=== PATIENT | male | born 1965 | race Caucasian/White ===

== ENCOUNTER 2018-06-04 10:07 | Inpatient (IN) | payer SELFPAY ==
[2018-06-04 10:47] LABS: URINE SOURCE MIDSTREAM
[2018-06-04 10:52] LABS: URINE BILIRUBIN NEGATIVE (NEGATIVE); URINE BLOOD TRACE (NEGATIVE); URINE GLUCOSE (UA) NEGATIVE (NEGATIVE); URINE KETONE NEGATIVE (NEGATIVE); URINE LEUKOCYTE ESTERASE TRACE (NEGATIVE); URINE MICROSCOPIC INDICATED? YES; URINE NITRATE POSITIVE (NEGATIVE); URINE PH 6.5 (4.6 - 8.0); URINE PROTEIN NEGATIVE (NEGATIVE); URINE UROBILINOGEN 0.2 E.U./dL (0.2 - 1.0)
[2018-06-04] MEDS ORDERED: Haloperidol Lactate 5 mg/mL 1mL Vial IM STA (11:25)
[2018-06-04 11:45] LABS: URINE CLARITY HAZY (CLEAR); URINE COLOR YELLOW
[2018-06-04 11:46] LABS: URINE BACTERIA 1+ /hpf (NONE SEEN); URINE EPITHELIAL CELLS FEW /lpf (FEW); URINE RBC 0-2 /hpf (0-5)
[2018-06-04] MEDS ORDERED: Haloperidol Lactate 5 mg/mL 1mL Vial ONE (11:56)
--- NOTE | 2018-06-04 12:13 | Diagnostic Imaging Report ---
CHEST X-RAY: AP view INDICATION: pain COMPARISON: None FINDINGS: Low lung volumes are noted. Multilevel thoracic spinal fixation hardware is noted. There is no focal consolidation or pleural effusions The heart is normal in size. IMPRESSION: Low lung volume with no focal consolidation identified Multilevel thoracic spinal fixation hardware.
[2018-06-04 13:16] LABS: INR 0.91 (0.5-1.4); PROTHROMBIN TIME (TEST) 9.5 SECONDS (9.5-11.5)
[2018-06-04 13:21] LABS: ALB/GLOB RATIO 0.7 (1.0-1.8); ALBUMIN 2.8 gm/dL (4.2-5.5); ALKALINE PHOSPHATASE 127 U/L (34-104); ANION GAP 13.9 (7.0-16.0); BILIRUBIN,TOTAL 0.1 mg/dL (0.3-1.0); BUN - UREA NITROGEN 8 mg/dL (7-25); CALCIUM SERUM 8.4 mg/dL (8.6-10.3); CARBON DIOXIDE 27.1 mEq/L (21.0-31.0); CHLORIDE 108 mEq/L (98-107); CREATININE - SERUM 0.5 mg/dL (0.7-1.3); CREATININE KINASE 234 U/L (30-223); GFR AFRICAN-AMERICAN > 60.0 ml/min (>90); GFR NON AFRICAN-AMERICAN > 60.0 ml/min; GLUCOSE 112 mg/dL (70-105); SGOT 40 U/L (13-39); SGPT/ALT 39 U/L (7-52); SODIUM SERUM 146 mEq/L (136-145)
[2018-06-04 13:23] LABS: TROP I 0.01 ng/mL (0.01-0.05)
[2018-06-04 13:27] LABS: HEMATOCRIT 31.2 % (41.0-60); HEMOGLOBIN 10.1 gm/dL (12-16); MEAN CELL VOLUME 73.3 fl (80-99); MEAN CORPUSCULAR HEMOGLOBIN 23.8 pg (26.0-30.0); MEAN CORPUSCULAR HGB CONC 32.4 pg (28.0-36.0); MEAN PLATELET VOLUME 7.6 fl; PLATELET COUNT 259 Th/cmm (150-400); RED BLOOD COUNT 4.25 Mil/cmm (4.30-5.70); RED CELL DISTRIBUTION WIDTH 17.6 % (11.5-20.0); WHITE BLOOD COUNT 8.9 Th/cmm (4.8-10.8)
[2018-06-04 14:38] LABS: AMPHETAMINE URINE NEGATIVE (NEGATIVE); BARBITURATES URINE NEGATIVE (NEGATIVE); BENZODIAZEPINES QUAL URINE NEGATIVE (NEGATIVE); CANNABINOID THC POSITIVE (NEGATIVE); COCAINE METABOLITE QUAL URINE NEGATIVE (NEGATIVE); METHADONE URINE NEGATIVE (NEGATIVE); METHAMPHETAMINES QUAL URINE NEGATIVE (NEGATIVE); OPIATES (MORPHINE) QUAL. URINE NEGATIVE (NEGATIVE); PHENCYCLIDINE (PCP) URINE NEGATIVE (NEGATIVE); TRICYCLICS (TCA) QUAL. URINE NEGATIVE (NEGATIVE)
--- NOTE | 2018-06-04 14:55 | ED Physician Chart ---
ED Chief Complaint/HPI - Patient Information Date Seen:: 06/04/18 Time Seen:: 10:40 Chief Complaint:: AMS History of Present Illness:: pt presents with AMS and ALOC; no report of trauma, H/As, S/T, neck pain, C/P, SOB, Abd. Pain, A/N/V/D/C, fever, chills, or urinary s/s Allergies:: Allergies Allergy/AdvReac Type Severity Reaction Status Date / Time acetaminophen [From Tylenol] Allergy Verified 06/04/18 10:43 Vitals:: Vital Signs - 8 hr 06/04/18 10:44 Temp 97.8 F HR 82 RR 16 BP 107/59 O2 Sat % 97 Historian:: Patient, EMS Review:: Nurse's Note Reviewed, Old Chart Reviewed, EMS run form Reviewed ED Review of Systems - Review of Systems General/Constitutional: No fever, No chills, No weight loss, Weakness, No diaphoresis, No edema, No loss of appetite Skin: No skin lesions, No rash, No bruising Head: No headache, No light-headedness Eyes: No loss of vision, No pain, No diplopia ENT: No earache, No nasal drainage, No sore throat, No tinnitus Neck: No neck pain, No swelling, No thyromegaly, No stiffness, No mass noted Cardio Vascular: No chest pain, No palpitations, No PND, No orthopnea, No edema Pulmonary: No SOB, No cough, No sputum, No wheezing GI: Nausea, Vomiting, Diarrhea, Pain, No melena, No hematochezia, No constipation, No hematemesis G/U: No dysuria, No frequency, No hematuria, No nacturia Musculoskeletal: Bone or joint pain, Back pain, No muscle pain Endocrine: No polyuria, No polydipsia Psychiatric: No prior psych history, No depression, No anxiety, No suicidal ideation, No homicidal ideation, No auditory hallucination, No visual hallucination Hematopoietic: No bruising, No lymphadenopathy Allergic/Immuno: No urticaria, No angioedema Neurological: No syncope, No focal symptoms, No weakness, No paresthesia, No headache, No seizure, No dizziness, Confusion, No vertigo ED Past Medical History - Past Medical History Obtainable: Yes Past Medical History: CVA/TIA, PUD/GERD, Arthritis Family History: HTN Social History: Smoker, Alcohol, Illicit Drug Use, Single, Homeless Surgical History: other (Colostomy; Spinal Surgery) Psychiatricy History: None Medication: Reviewed Family Medical History - Family Member Mother History Unknown: Yes ED Physical Exam - Physical Examination General/Constitutional: Awake, Well-developed, well-nourished, Alert, No distress, GCS 15, Non-toxic appearing, Ambulatory Head: Atraumatic Eyes: Lids, conjuctiva normal, PERRL, EOMI Skin: Nl inspection, No rash, No skin lesions, No ecchymosis, Well hydrated, No lymphadenopathy Other Skin comments:: + Sacral Decubitus Ulcers ENMT: External ears, nose nl, TM canals nl, Nasal exam nl, Lips, teeth, gums nl , Oropharynx nl, Tonsils nl Neck: Nontender, Full ROM w/o pain, No JVD, No nuchal rigidity, No bruit, No mass, No stridor Respiratory: Nl effort/Exclusion, Clear to Auscultation, No Wheeze/Rhonchi/Rales Cardio Vascular: RRR, No murmur, gallop, rubs, NL S1 S2, Carotid/Femoral/Distal pulses equal bilaterally GI: No tenderness/rebounding/guarding, No organomegaly, No hernia, Normal BS's, Nondistended, No mass/bruits, No McBurney tenderness, Rectum exam nl Other GI comments:: no pulsatile masses; + Colostomy Stoma Site : No CVA tenderness Extremities: No tenderness or effusion, Full ROM, normal strength in all extremities, No edema, Normal digits & nails Neuro/Psych: Alert/oriented, DTR's symmetric, Normal sensory exam, Normal motor strength, Judgement/insight normal, Mood normal, Normal gait Other Neuro/Psych comments:: + Quadriplegia (old) Misc: Normal back, No paraspinal tenderness ED Labs/Radiology/EKG Results - Lab Results Results: Laboratory Tests 06/04/18 06/04/18 06/04/18 10:20 12:00 12:53 WBC 8.9 RBC 4.25 L Hgb 10.1 L Hct 31.2 L MCV 73.3 L MCH 23.8 L MCHC Differential 32.4 RDW 17.6 Plt Count 259 MPV 7.6 Add Manual Diff YES PT INR PTT (Actin FS) Sodium Potassium Chloride Carbon Dioxide Anion Gap BUN Creatinine Est GFR ( Amer) Est GFR (Non-Af Amer) BUN/Creatinine Ratio Glucose Whole Bld Lactic Acid Calcium Total Bilirubin AST ALT Alkaline Phosphatase Creatine Kinase Troponin I Total Protein Albumin Globulin Albumin/Globulin Ratio Urine Source [place] Urine Color YELLOW Urine Clarity HAZY Urine pH 6.5 Ur Specific [place] 1.010 Urine Protein NEGATIVE Urine Glucose (UA) NEGATIVE Urine Ketones NEGATIVE Urine Blood TRACE Urine Nitrate POSITIVE H Urine Bilirubin NEGATIVE Urine Urobilinogen 0.2 Ur Leukocyte Esterase TRACE H Urine RBC 0-2 H Urine WBC 6-10 Ur Epithelial Cells FEW Urine Bacteria 1+ H Urine Opiates Screen NEGATIVE Urine Methadone Screen NEGATIVE Ur Barbiturates Screen NEGATIVE Ur Tricyclics Screen NEGATIVE Ur Phencyclidine Scrn NEGATIVE Amphetamines Screen NEGATIVE U Methamphetamines Scrn NEGATIVE U Benzodiazepines Scrn NEGATIVE U Cocaine Metab Screen NEGATIVE U Cannabinoids Screen POSITIVE H Ethyl Alcohol 06/04/18 06/04/18 06/04/18 12:53 12:53 12:53 WBC RBC Hgb Hct MCV MCH MCHC Differential RDW Plt Count MPV Add Manual Diff PT 9.5 INR 0.91 PTT (Actin FS) 26.3 Sodium 146 H Potassium 3.0 L Chloride 108 H Carbon Dioxide 27.1 Anion Gap 13.9 BUN 8 Creatinine 0.5 L Est GFR ( Amer) > 60.0 Est GFR (Non-Af Amer) > 60.0 BUN/Creatinine Ratio 16.0 Glucose 112 H Whole Bld Lactic Acid 1.58 Calcium 8.4 L Total Bilirubin 0.1 L AST 40 H ALT 39 Alkaline Phosphatase 127 H Creatine Kinase 234 H Troponin I 0.01 Total Protein 7.0 Albumin 2.8 L Globulin 4.2 Albumin/Globulin Ratio 0.7 L Urine Source Urine Color Urine Clarity Urine pH Ur Specific [place] Urine Protein Urine Glucose (UA) Urine Ketones Urine Blood Urine Nitrate Urine Bilirubin Urine Urobilinogen Ur Leukocyte Esterase Urine RBC Urine WBC Ur Epithelial Cells Urine Bacteria Urine Opiates Screen Urine Methadone Screen Ur Barbiturates Screen Ur Tricyclics Screen Ur Phencyclidine Scrn Amphetamines Screen U Methamphetamines Scrn U Benzodiazepines Scrn U Cocaine Metab Screen U Cannabinoids Screen Ethyl Alcohol 343 H - Radiology Results Comments:: NAD - EKG Interpretations EKG Time:: 11:03 Rate & Rhythm: 71; NSR Comments:: old ASMI; non-specific st-t changes ED Septic Shock - . Is Septic Shock (SBP<90, OR Lactate>4 mmol\L) present?: No - <6hrs of presentation: Vital Signs: Vital Signs - 8 hr 06/04/18 10:44 Temp 97.8 F HR 82 RR 16 BP 107/59 O2 Sat % 97 ED Reassessment (Disposition) - Reassessment Reassessment Condition:: Improved - Diagnosis Diagnosis:: AMS; ALOC; Decubitus Ulcers; Wounds; Alcohol Intoxication; Anemia; Hypernatremia ; Dehydration; Hypokalemia; Hypocalcemia; Substance Abuse; S/P Colostomy; Back Pain; Quadriplegia; UTI; Sepsis - Aftercare/Follow up Instructions Aftercare/Follow-Up Instructions:: Counseled pt regarding lab results/diagnosis & need follow up, Counseled pt & family regarding lab results/diagnosis & need follow up - Patient Disposition Discharge/Transfer:: Acute Care w/in this hosp Accepting Physician:: Dr. Hussein Time Called:: 1230 Time Responded:: 12:30 Admitted to:: Telemetry Spoke to:: Dr. Hussein Admitting Medical Physician:: Dr. Hussein Condition at Disposition:: Stable, Improved
[2018-06-04] MEDS ORDERED: Multivitamin Inj 10 ML, Thiamine HCL 100 MG, Magnesium Sulfate 2 GM, Folic Acid 1 MG in... IV ONE (14:56)
[2018-06-04] MEDS ORDERED: Sodium Chloride 0.9% 1,000 ML IV ONE (14:56)
[2018-06-04 15:09] LABS: AMYLASE SERUM 35 U/L (29-103); LIPASE 44 U/L (11-82)
[2018-06-04] MEDS ORDERED: Potassium Chloride 20 mEq ER Tab PO ONE ×2 (15:09→16:20)
[2018-06-04 16:33] LABS: BAND NEUTROPHILE 3 % (0-10); LYMPHOCYTE 25 % (20-50); MONOCYTE 8 % (2-10); NEUTROPHILS 64 % (40-80)
[2018-06-04 20:07] VITALS: BP 97/54
[2018-06-04] MEDS ORDERED: Piperacillin Sodium/Tazobact 3.375 gm Vial IV ONE (21:25)
[2018-06-05] MEDS ORDERED: Piperacillin Sodium/Tazobact 3.375 gm Vial IV ONE (01:39)
[2018-06-05] MEDS: HYDROmorphone 1 mg/mL 1mL Syr IVP PRN ×2 (01:46→10:04)
--- NOTE | 2018-06-05 08:27 | Diagnostic Imaging Report ---
Head CT without intravenous contrast Indication: Trauma, alcohol intoxication Comparison: None Technique: Axial images were obtained from the vertex to the skull base without IV contrast. Coronal reconstructions were made. Total DLP: 742, CTDI40 FINDINGS: Images of the brain obtained without contrast demonstrate no evidence of an acute hemorrhage. Minimal chronic microvessel ischemic changes are noted. The ventricles and basal cisterns are patent. No mass effect or midline shift. 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 No skull fracture or focal soft tissue swelling. The visualized paranasal sinuses are clear. Mild atherosclerosis is noted. IMPRESSION: No acute intracranial abnormality Minimal chronic microvessel ischemic changes. 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 Consider follow-up if necessary. Mild atherosclerosis.
--- NOTE | 2018-06-05 08:30 | Diagnostic Imaging Report ---
CT cervical spine without IV contrast HISTORY: Trauma COMPARISON: None Technique: Axial images were obtained from the skull base to the upper thoracic spine without IV contrast. Multiplanar reconstructions were made. Total DLP: 742, CTDI41 FINDINGS: Images of the cervical spine obtained without contrast demonstrate no evidence of an acute fracture or subluxation. [id number] degenerative changes are noted including mild disc space loss of height at C5/C6 and C6/C7 with small posterior disc osteophyte femurs at this level measuring 2 to 3 mm. There is mild bilateral neural foraminal encroachment at C5/C6 and mild right neural foraminal encroachment at C6/C7. There is mild scoliosis. No prevertebral soft tissue swelling. Atherosclerosis is noted. IMPRESSION: No evidence of acute fracture or subluxation. Mild to moderate degenerative changes. Mild scoliosis.
--- NOTE | 2018-06-05 12:17 | History and Physical ---
History of Present Illness - HPI Chief Complaint: ALOC HPI: Patient came to ER with ALOC, during ER evaluation was found Alcohol intoxication, Dehydration, Decubit sacral ulcer, reason why he was hospitalized. Vital Signs: Last Vital Signs Temp 97.8 F 06/05/18 11:34 Pulse 62 06/05/18 11:34 Resp 20 06/05/18 11:34 BP 143/70 06/05/18 11:34 Pulse Ox 98 06/05/18 11:34 Past Medical History Cardiovascular: Report: No Pertinent Hx Pulmonary: Report: No Pertinent Hx [employer]: Report: Other (Spine injury) GI: Report: Other (Colostomy in place,) Psych: Report: Addictions (Alcohol, Marijuana) Musculoskeletal: Report: Other (Limited movement of lower extremities) Rheumatologic: Report: No pertinent Hx Infectious Disease: Report: No Pertinent Hx Renal/: Report: No Pertinent Hx Endocrine: Report: No Pertinent Hx Dermatology: Report: Other (Decubit sacral ulcer) - Past Surgical History Past Surgical History: Other (Colostomy) Family Medical History - Family Member Mother History Unknown: Yes Social History Smoke: <1 pack per day Alcohol: Heavy Drugs: Marijuana Lives: Homeless Domestic Violence: Negative - Medications Home Medications: Home Medication Medication Instructions Recorded Type Alprazolam [Xanax*] 2 mg PO DAILY 06/04/18 History fentaNYL 25 mcg/hr [Duragesic 25 25 mcg TD Q72HR 06/04/18 History mcg/hr Tdm Patch] - Allergies Allergies/Adverse Reactions: Allergies Allergy/AdvReac Type Severity Reaction Status Date / Time acetaminophen [From Tylenol] Allergy Verified 06/04/18 10:43 Review of Systems - Review of Systems Constitutional: Report: Weakness Eyes: Report: No Significant ENT: Report: No Significant Respiratory: Report: No Significant Cardiovascular: Report: No Significant Gastrointestinal: Report: No Significant Genitourinary: Report: No Significant Musculoskeletal: Report: Foot Pain Skin: Report: Other (Decubit sacral ulcer) Neurological: Report: Other (Paraplegia) Physical Exam - Physical Exam HEENT: Report: Ears Nose Throat within normal limits Neck: Report: Within normal limits Cardiovascular Systems: Report: Regular, Rate and Rhythm Respiratory: Report: Breath Sounds are within normal limits Abdomen: Report: Non-tender to palpation, Other (Colostomy in place) Back: Report: Inspection of back is within normal limits. Extremities: Report: Other (Limited movement of lower extremities) Skin: Report: Other (Sacral ucer) Neuro/Psych: Report: Mood affect is within normal limits - Lab Results All Lab Results last 24 hours: Laboratory Results - last 24 hr 06/04/18 06/04/18 06/04/18 10:20 12:00 12:53 WBC 8.9 RBC 4.25 L Hgb 10.1 L Hct 31.2 L MCV 73.3 L MCH 23.8 L MCHC Differential 32.4 RDW 17.6 Plt Count 259 MPV 7.6 Add Manual Diff YES Band Neutrophils % 3 Neutrophils (Manual) 64 Lymphocytes 25 Monocytes 8 PT INR PTT (Actin FS) Sodium Potassium Chloride Carbon Dioxide Anion Gap BUN Creatinine Est GFR ( Amer) Est GFR (Non-Af Amer) BUN/Creatinine Ratio Glucose Whole Bld Lactic Acid Calcium Total Bilirubin AST ALT Alkaline Phosphatase Creatine Kinase CK-MB (CK-2) Troponin I Total Protein Albumin Globulin Albumin/Globulin Ratio Amylase Lipase Urine Source [place] Urine Color YELLOW Urine Clarity HAZY Urine pH 6.5 Ur Specific [place] 1.010 Urine Protein NEGATIVE Urine Glucose (UA) NEGATIVE Urine Ketones NEGATIVE Urine Blood TRACE Urine Nitrate POSITIVE H Urine Bilirubin NEGATIVE Urine Urobilinogen 0.2 Ur Leukocyte Esterase TRACE H Urine RBC 0-2 H Urine WBC 6-10 Ur Epithelial Cells FEW Urine Bacteria 1+ H Urine Opiates Screen NEGATIVE Urine Methadone Screen NEGATIVE Ur Barbiturates Screen NEGATIVE Ur Tricyclics Screen NEGATIVE Ur Phencyclidine Scrn NEGATIVE Amphetamines Screen NEGATIVE U Methamphetamines Scrn NEGATIVE U Benzodiazepines Scrn NEGATIVE U Cocaine Metab Screen NEGATIVE U Cannabinoids Screen POSITIVE H Ethyl Alcohol 06/04/18 06/04/18 06/04/18 12:53 12:53 12:53 WBC RBC Hgb Hct MCV MCH MCHC Differential RDW Plt Count MPV Add Manual Diff Band Neutrophils % Neutrophils (Manual) Lymphocytes Monocytes PT 9.5 INR 0.91 PTT (Actin FS) 26.3 Sodium 146 H Potassium 3.0 L Chloride 108 H Carbon Dioxide 27.1 Anion Gap 13.9 BUN 8 Creatinine 0.5 L Est GFR ( Amer) > 60.0 Est GFR (Non-Af Amer) > 60.0 BUN/Creatinine Ratio 16.0 Glucose 112 H Whole Bld Lactic Acid 1.58 Calcium 8.4 L Total Bilirubin 0.1 L AST 40 H ALT 39 Alkaline Phosphatase 127 H Creatine Kinase 234 H CK-MB (CK-2) 3.3 Troponin I 0.01 Total Protein 7.0 Albumin 2.8 L Globulin 4.2 Albumin/Globulin Ratio 0.7 L Amylase Lipase Urine Source Urine Color Urine Clarity Urine pH Ur Specific [place] Urine Protein Urine Glucose (UA) Urine Ketones Urine Blood Urine Nitrate Urine Bilirubin Urine Urobilinogen Ur Leukocyte Esterase Urine RBC Urine WBC Ur Epithelial Cells Urine Bacteria Urine Opiates Screen Urine Methadone Screen Ur Barbiturates Screen Ur Tricyclics Screen Ur Phencyclidine Scrn Amphetamines Screen U Methamphetamines Scrn U Benzodiazepines Scrn U Cocaine Metab Screen U Cannabinoids Screen Ethyl Alcohol 343 H 06/04/18 12:53 WBC RBC Hgb Hct MCV MCH MCHC Differential RDW Plt Count MPV Add Manual Diff Band Neutrophils % Neutrophils (Manual) Lymphocytes Monocytes PT INR PTT (Actin FS) Sodium Potassium Chloride Carbon Dioxide Anion Gap BUN Creatinine Est GFR ( Amer) Est GFR (Non-Af Amer) BUN/Creatinine Ratio Glucose Whole Bld Lactic Acid Calcium Total Bilirubin AST ALT Alkaline Phosphatase Creatine Kinase CK-MB (CK-2) Troponin I Total Protein Albumin Globulin Albumin/Globulin Ratio Amylase 35 Lipase 44 Urine Source Urine Color Urine Clarity Urine pH Ur Specific [place] Urine Protein Urine Glucose (UA) Urine Ketones Urine Blood Urine Nitrate Urine Bilirubin Urine Urobilinogen Ur Leukocyte Esterase Urine RBC Urine WBC Ur Epithelial Cells Urine Bacteria Urine Opiates Screen Urine Methadone Screen Ur Barbiturates Screen Ur Tricyclics Screen Ur Phencyclidine Scrn Amphetamines Screen U Methamphetamines Scrn U Benzodiazepines Scrn U Cocaine Metab Screen U Cannabinoids Screen Ethyl Alcohol - Assessment Assessment: Patient is awake, alert, calm requesting 2 mg of Dilaudid instead of 1 mg, in no acute distress. Dx: ALOC, UTI, Dehydration, Alcohol intoxication, Colostomy in place, Anemia, Paraplegia, Drug addiction. - Plan Plan: Patient is in Banana Bag, IV AB, Pain control, Wound care. Will continue to monitor.
--- NOTE | 2018-06-06 16:36 | Discharge Summary ---
General Discharge Summary - Discharge Summary Date of Admission: 06/04/18 Admitting Diagnosis: ALOC, Decubit sacral ulcer, UTI, Dehydration, Anemia, Alcohol intoxication, Discharge Date: 06/05/18 Discharge Diagnosis: ALOC, UTI, Dehydration, Alcohol intoxication, Sacral ulcer , Anemia, Paraplegia, Drug addiction Hospital Course: Patient was responding to treatment but he left AMA because he wanted 2 mg of Dilaudid IV q 4 hrs, and did not gave him this dose. Treatment: Patient was in IV NS, IV AB, pain control, Wound care, but he left AMA Disposition: AGAINST MEDICAL ADVICE Home Medications: Home Medication Medication Instructions Recorded Type Alprazolam [Xanax*] 2 mg PO DAILY 06/04/18 History fentaNYL 25 mcg/hr [Duragesic 25 25 mcg TD Q72HR 06/04/18 History mcg/hr Tdm Patch] Activity: As Tolerated Discharge Diet: Regular Consults and Follow-Up: NO,PCP PER PT [Other] Jas Hussein [Primary Care Provider] - Consulting Speciality: Surgery, Infectious Disease, Other (PCP)
== END 2018-06-05 16:25 | disposition left against medical advice (07) | DRG 871 ==
LOC: ER 10:07 → TELE 17:31 → MSI 06-05 14:48
PROVIDERS: ADMIT General Practice; ATTEND General Practice
DX: A41.9 Sepsis, unspecified organism (principal); G82.50 Quadriplegia, unspecified; N39.0 Urinary tract infection, site not specified; F19.20 Other psychoactive substance dependence, uncomplicated; E87.0 Hyperosmolality and hypernatremia; F10.229 Alcohol dependence with intoxication, unspecified; Y90.8 Blood alcohol level of 240 mg/100 ml or more; E86.0 Dehydration; D64.9 Anemia, unspecified; K21.9 Gastro-esophageal reflux disease without esophagitis; M19.90 Unspecified osteoarthritis, unspecified site; F17.210 Nicotine dependence, cigarettes, uncomplicated; E83.51 Hypocalcemia; L89.159 Pressure ulcer of sacral region, unspecified stage; Z53.21 Procedure and treatment not carried out due to patient leaving prior to being seen by health care provider; Z88.8 Allergy status to other drugs, medicaments and biological substances; Z86.73 Personal history of transient ischemic attack (TIA), and cerebral infarction without residual deficits; Z93.3 Colostomy status; Z59.0 Homelessness; Z82.49 Family history of ischemic heart disease and other diseases of the circulatory system
CPT/HCPCS: 36415-UA; 70450-TC; 71045-TC; 72125-TC; 80053-TC; 80307; 80320-TC; 81001-TC; 82150-TC; 82550-TC; 82553; 83605; 83690-TC; 84484-TC; 85007-TC; 85025-TC; 85610-TC; 85730-TC; 87086-90; 93005; J1170; J1200; J1630; J2060; J2543; J3370; J3411; J3475; J7030; X6598